=== PATIENT | female | born 1985 | race Two or more races ===

== ENCOUNTER 2022-02-12 11:01 | Emergency (ER) | payer SELFPAY ==
[~2022-02-12] VITALS: Ht 162.6 cm; Wt 71.7 kg
[2022-02-12 11:10] VITALS: BP 92/62
[2022-02-12] MEDS ORDERED: ACETAMINOPHEN 325 MG TABLET PO ONE (11:30)
[2022-02-12] MEDS ORDERED: ACETAMINOPHEN 325 MG TABLET ONE (11:38)
--- NOTE | 2022-02-12 11:40 | NUR ---
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
[2022-02-12] MEDS ORDERED: IBUP-1957 PO (12:37)
== END 2022-02-12 13:06 | disposition home or self-care (01) ==
LOC: ER 11:07
DX: M25.561 Pain in right knee (principal); Z90.49 Acquired absence of other specified parts of digestive tract; Z60.2 Problems related to living alone
CPT/HCPCS: 73564-TC